=== PATIENT | male | born 1980 | race Caucasian/White ===

== ENCOUNTER 2018-10-05 01:11 | Emergency (ER) | payer OTHER | END 2018-10-05 04:10 | disposition home or self-care (01) | LOC: FTE 01:11 | DX: G40.909 Epilepsy, unspecified, not intractable, without status epilepticus (principal) | CPT/HCPCS: 99281; Z7502 ==

== ENCOUNTER 2018-12-04 20:53 | Emergency (ER) | payer OTHER | END 2018-12-04 21:34 | disposition home or self-care (01) | LOC: FTE 20:53 | DX: Z76.0 Encounter for issue of repeat prescription (principal); G40.909 Epilepsy, unspecified, not intractable, without status epilepticus; F17.200 Nicotine dependence, unspecified, uncomplicated | CPT/HCPCS: 99282; Z7502 ==

== ENCOUNTER 2019-01-04 12:52 | Emergency (ER) | payer OTHER | END 2019-01-04 13:16 | disposition home or self-care (01) | LOC: FTE 13:16 | DX: Z76.0 Encounter for issue of repeat prescription (principal) | CPT/HCPCS: 99281 ==

== ENCOUNTER 2019-02-05 01:37 | Emergency (ER) | payer OTHER | END 2019-02-05 03:00 | disposition home or self-care (01) | LOC: FTE 01:37 | DX: G40.909 Epilepsy, unspecified, not intractable, without status epilepticus (principal) | CPT/HCPCS: 99281 ==